=== PATIENT | female | born 1975 | race Caucasian/White ===

== ENCOUNTER 2017-09-10 19:34 | Inpatient (IN) ==
[2017-09-10] MEDS ORDERED: Haloperidol Lactate 5 MG/ML VIAL IM PRN (20:07)
[2017-09-10] MEDS ORDERED: Ibuprofen 400 MG TABLET PO PRN (20:07)
[2017-09-10] MEDS ORDERED: hydrOXYzine pamoate 25 MG CAPSULE PO PRN (20:07)
[2017-09-10] MEDS ORDERED: MOM Conc 10 ML UD.LIQ PO PRN (20:07)
[2017-09-10] MEDS: traZODone 50 MG TABLET PO PRN (23:30)
[2017-09-11] MEDS: Nicotine 21 MG PATCH.TD24 TD SCH ×2 (10:44→11:43)
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
[2017-09-11] MEDS: diazePAM 5 MG TABLET PO SCH ×2 (11:44→21:18)
[2017-09-12] MEDS: diazePAM 5 MG TABLET PO SCH ×2 (08:03→20:52)
[2017-09-12] MEDS: Nicotine 21 MG PATCH.TD24 TD SCH (08:04)
[2017-09-12] MEDS ORDERED: diazePAM 10 MG TABLET PO ONE (10:11)
--- NOTE | 2017-09-12 11:57 | Psychiatry Progress Note ---
Date of Encounter: 09/12/17 Time of Encounter: 11:45 Subjective Interval history: The patient is a 42-year-old white female. Chief complaint I want to keep writing. She did not want to go to lunch when I told her been served. History of present illness the patient is continued with 24 hours of catatonia. This includes not eating walking slowly. She tolerated zolpidem without an allergic reaction. She did not improve by report. The patient has had several doses of diazepam. She did not have flushing or other reactions. The patient ate very slowly and very poorly she had speech prompt mutism. She appeared very few words in the course of a 1 hour back and forth conversation. The patient has stated that she is to blame or that she is responsible for bad things happening. This is difficult to discern because she says very little but something has to do with hiding pills or the daughter getting in trouble or something like that. The patient is writing a little bit more productively and had minimal improvement. I spoke to the patient about her treatment option these include diazepam 10 mg up to give before lunch and will observe her to see if she eats better Another option is to use Ambien 10 mg 3 times a day to see if that helps. The patient has an underlying psychosis and is not eating. Therefore I will use olanzapine 10 mg IM on an emergency basis depending on her response. The patient can be considered for electroconvulsive therapy if she fails to improve her she has other features of dehydration or malnutrition. I will order labs for tomorrow to check on her status. The patient has hypertension this may be an autonomic disturbance from catatonia. I will also order a CPK she does not have evidence of malignant catatonia but would be a good idea along with an iron profile as she may be at risk for neuroleptic malignant syndrome as we consider antipsychotic treatment for her ongoing psychosis. The patient's history is not been fully collected by outside sources. It is likely she has bipolar disorder but we do not know her previous treatment history therefore the question of mood stabilizers antidepressants may have to wait until further information can be gathered. Review of Systems Psychiatric: Reports: anxiety, suicidal ideation, auditory hallucinations, difficulty concentrating Results - Vital Signs Vital Signs: Temp Pulse Resp BP 98.7 F 116 16 133/101 09/12/17 09:00 09/12/17 09:00 09/12/17 09:00 09/12/17 09:00 Assessment and Plan (1) Bipolar disorder, current episode depressed, severe, with psychotic features Current visit: Yes Status: Acute Plan: Continue hospitalization, Close observation, Suicide Precautions per unit protocol, Encourage participation in unit milieu, Group Therapy, Monitor sleep, Monitor appetite, Secure weapons Risks, benefits, side effects, alternatives discussed w/pt: Yes Patient agreeable to treatment: Yes (2) Catatonic disorder due to known physiological condition Current visit: Yes Status: Acute Plan: Monitor sleep, Monitor appetite, Family/Supportive other meeting Risks, benefits, side effects, alternatives discussed w/pt: Yes Patient agreeable to treatment: Yes (3) Suicidal ideations Current visit: Yes Status: Acute Plan: Continue hospitalization, Close observation, Suicide Precautions per unit protocol, Encourage participation in unit milieu, Secure weapons Risks, benefits, side effects, alternatives discussed w/pt: Yes Patient agreeable to treatment: Yes (4) Blood pressure elevated without history of HTN Current visit: Yes Status: Acute Plan: Continue hospitalization, Close observation, Suicide Precautions per unit protocol, Encourage participation in unit milieu, Group Therapy Risks, benefits, side effects, alternatives discussed w/pt: Yes Patient agreeable to treatment: Yes Psychiatry Exam - Constitutional Vitals: Temp Pulse Resp BP 98.7 F 116 16 133/101 09/12/17 09:00 09/12/17 09:00 09/12/17 09:00 09/12/17 09:00 General appearance: age & developmentally appropriate, well-groomed, well- nourished - Musculoskeletal Gait: normal Station: relaxed Strength & Tone: flaccid - Psychiatric Patient Orientation: Yes Person, Yes Time, Yes Place Level of alertness: Alert, Follows commands Behavior: guarded, suspicious, fearful, withdrawn Psychomotor activity: Catatonic Mood Description: Depressed Affect description: blunted, dysphoric, inappropriate to situation Speech Volume: Normal, Soft/Quiet, No speech Speech pattern: normal rate, limited, non-verbal Language & Vocabulary: consistent with education Thought Process: Slowed Thinking Thought Content: Yes Suicidal ideation, No Homicidal ideation, No Overt delusions, Yes Ideas of reference, Yes Paranoid delusion Perceptual Disturbances: No Auditory hallucinations, No Visual hallucinations Memory Description: Grossly Intact, Immediate Impaired, Recent Impaired, Remote Impaired Patient Reliability: Questionable Historian Intelligence Estimate: Average Judgment: Limited Insight: Minimal
[2017-09-12] MEDS: OLANZapine 5 MG TAB.RAPDIS PO SCH (20:52)
[2017-09-13] MEDS: Nicotine 21 MG PATCH.TD24 TD SCH (09:15)
[2017-09-13] MEDS: OLANZapine 5 MG TAB.RAPDIS PO SCH ×2 (09:16→20:47)
[2017-09-13] MEDS: diazePAM 5 MG TABLET PO SCH ×2 (09:16→20:48)
[2017-09-13 10:35] LABS: Thyroid Stimulating Hormone 1.648 mcIU/mL (0.340-5.600)
[2017-09-13 10:51] LABS: % Iron Saturation 10 % (15-50); Alanine Aminotransferase 52 Units/L (7-52); Albumin 4.5 g/dL (3.5-5.7); Albumin/Globulin Ratio 1.6 (1.1-2.2); Alkaline Phosphatase 106 Units/L (34-104); Aspartate Amino Transferase 32 Units/L (13-39); BUN/Creatinine Ratio 17 (6-26); Bilirubin,Total 0.8 mg/dL (0.3-1.0); Blood Urea Nitrogen 12 mg/dL (6-20); Calcium 9.8 mg/dL (8.6-10.3); Carbon Dioxide 26 mEq/L (23-29); Chloride 107 mEq/L (98-107); Chol/HDL Ratio 4.4 (0-4.9); Cholesterol 149 mg/dL (< 200); Creatine Kinase 55 Units/L (30-223); Globulin 2.9 g/dL (2.4-3.5); Glucose 102 mg/dL (70-105); HDL Cholesterol 34 mg/dL (40-59); Iron 36 mcg/dL (50-170); LDL Cholesterol,Calculated 90 mg/dL (0-99); Osmolality,Calculated 290 (280-300); Sodium 140 mEq/L (136-145); Total Protein 7.4 g/dL (6.4-8.9); Transferrin 252 mg/dL (203-362); Triglycerides 124 mg/dL (< 150); eGFR For African Americans > 60 (> 60); eGFR For Non-African Americans > 60 (> 60)
--- NOTE | 2017-09-13 15:18 | Psychiatry Progress Note ---
Date of Encounter: 09/13/17 Time of Encounter: 15:10 Subjective Interval history: Pt is a 42 yo, , female, who presents for Bipolar D/O type 1 with psychotic features, catatonic, and suicidal ideation. Pt noted she has not been taking her medication yet remains sedated on ambien. . Pt noted that she feels she is improving slowly. Pt noted she is optimistic to return home once stable. Pt denied any side effects to current medications. Pt noted she felt safe and comfortable on the unit. Pt was in agreement with treatment plan. Pt noted that she is doing pretty good today. Pt noted she slept 8 hours last night. Pt noted her appetite is okay. Pt rated her depression a 10, on a scale of zero to ten with ten being the worst and zero being none. Pt rate her anxiety a 0, on the same scale. Pt noted both visual or auditory hallucinations, pt became tearful when discussed. Pt denied any thoughts to harm herself or anyone else. AIMS=0 TD none noted Pt educated on current medications including, risks, benifits side-effects including TD including no medications, pt was inagreement. 1.Interval hx 2.Continue current medications 3.Review current labs 4.Pt had an opportunity to ask questions and discuss current treatment plan. 5.Supportive therapy was provided 6.Pt encouraged to consider group or individual therapy 7.Pt was in agreement with treatment plan. 8.Pt was educated on the risks benefits and side effects of current medications. 9. D/C Ambien due to oversedation. 10. Increase olanzapine to 10 mg PO BID for mood. Review of Systems Constitutional: Denies: fever, chills, weakness, weight change Eyes: Denies: eye pain, vision change Ears, Nose, Throat: Denies: ear pain, throat pain, dental pain, hearing loss, congestion Cardiovascular: Denies: chest pain, palpitations, dyspnea on exertion Respiratory: Denies: cough, dyspnea, wheezes Gastrointestinal: Denies: abdominal pain, nausea, vomiting, diarrhea, constipation Musculoskeletal: Denies: joint swelling, joint pain Neurological: Denies: headache, weakness, numbness, memory loss Psychiatric: Reports: anxiety, suicidal ideation, auditory hallucinations, difficulty concentrating Results - Vital Signs Vital Signs: Temp Pulse Resp BP 97.1 F L 101 18 106/72 09/13/17 09:00 09/13/17 09:00 09/13/17 09:00 09/13/17 09:00 - Labs Labs: Laboratory Results - last 24 hr 09/13/17 09:00 Sodium 140 Potassium 4.0 Chloride 107 Carbon Dioxide 26 BUN 12 Creatinine 0.70 Est GFR ( Amer) > 60 Est GFR (Non-Af Amer) > 60 BUN/Creatinine Ratio 17 Glucose 102 Calculated Osmolality 290 Calcium 9.8 Iron 36 L % Saturation 10 L Transferrin 252 Total Bilirubin 0.8 AST 32 ALT 52 Alkaline Phosphatase 106 H Creatine Kinase 55 Serum Total Protein 7.4 Albumin 4.5 Globulin 2.9 Albumin/Globulin Ratio 1.6 Triglycerides 124 Cholesterol 149 LDL Cholesterol, Calc 90 VLDL Cholesterol, Calc 25 HDL Cholesterol 34 L Cholesterol/HDL Ratio 4.4 TSH 1.648 Assessment and Plan (1) Bipolar disorder, current episode depressed, severe, with psychotic features Current visit: Yes Status: Acute Plan: Continue hospitalization, Close observation, Suicide Precautions per unit protocol, Encourage participation in unit milieu Risks, benefits, side effects , alternatives discussed w/pt: Yes Patient agreeable to treatment: Yes (2) Catatonic disorder due to known physiological condition Current visit: Yes Status: Acute Plan: Continue hospitalization, Close observation, Suicide Precautions per unit protocol, Encourage participation in unit milieu Risks, benefits, side effects , alternatives discussed w/pt: Yes Patient agreeable to treatment: Yes (3) Suicidal ideations Current visit: Yes Status: Acute Plan: Continue hospitalization, Close observation, Suicide Precautions per unit protocol, Encourage participation in unit milieu Risks, benefits, side effects , alternatives discussed w/pt: Yes Patient agreeable to treatment: Yes Consult Discharge Plan - Plan Referrals: NONE,PCP [Primary Care Provider] - Psychiatry Exam - Constitutional Vitals: Temp Pulse Resp BP 97.1 F L 101 18 106/72 09/13/17 09:00 09/13/17 09:00 09/13/17 09:00 09/13/17 09:00 General appearance: age & developmentally appropriate, well-groomed, well- nourished - Musculoskeletal Gait: normal Station: relaxed Strength & Tone: normal for patient - Psychiatric Patient Orientation: Yes Person, Yes Time, Yes Place Level of alertness: Sedated Behavior: calm, cooperative, tearful Psychomotor activity: Slowed Eye Contact: Minimal Contact Mood Description: Depressed Affect description: euthymic Speech Volume: Normal Speech pattern: normal rhythm, normal tone, slurred Language & Vocabulary: consistent with education Thought Process: Slowed Thinking Thought Content: Yes Intact Perceptual Disturbances: Yes Reacting to internal stimuli, Yes Auditory hallucinations, Yes Visual hallucinations Attention Span Ability: Unable to Focus Memory Description: Grossly Intact Patient Reliability: Questionable Historian Fund of knowledge: Yes average Intelligence Estimate: Average Judgment: Poor Insight: Minimal
[2017-09-13] MEDS ORDERED: OLANZapine 5 MG TAB.RAPDIS PO ONE (16:08)
[2017-09-14] MEDS: diazePAM 5 MG TABLET PO SCH ×2 (08:50→20:44)
[2017-09-14] MEDS: OLANZapine 5 MG TAB.RAPDIS PO SCH ×2 (08:50→20:44)
[2017-09-14] MEDS: Nicotine 21 MG PATCH.TD24 TD SCH (08:50)
--- NOTE | 2017-09-14 16:46 | Psychiatry Progress Note ---
Date of Encounter: 09/14/17 Time of Encounter: 16:30 Subjective Interval history: Pt is a 42 yo, , female, who presents for Bipolar D/O type 1 with psychotic features, catatonic, and suicidal ideation. Pt noted she has not been taking her medication yet remains sedated on ambien. . Pt noted that she feels she is improving slowly. Pt noted she is optimistic to return home once stable. Pt denied any side effects to current medications. Pt noted she felt safe and comfortable on the unit. Pt was in agreement with treatment plan. Pt noted that she is doing pretty good today. Pt noted she slept 8 hours last night. Pt noted her appetite is okay. Pt rated her depression a 8, on a scale of zero to ten with ten being the worst and zero being none. Pt rate her anxiety a 0, on the same scale. Pt noted both visual or auditory hallucinations, pt became tearful when discussed. Pt denied any thoughts to harm herself or anyone else. AIMS=0 TD none noted Pt educated on current medications including, risks, benifits side-effects including TD including no medications, pt was inagreement. 1.Interval hx 2.Continue current medications 3.Review current labs 4.Pt had an opportunity to ask questions and discuss current treatment plan. 5.Supportive therapy was provided 6.Pt encouraged to consider group or individual therapy 7.Pt was in agreement with treatment plan. 8.Pt was educated on the risks benefits and side effects of current medications. 9.Start Depakote ER 24 hr 1000 mg PO QHS for mood. 10. Draw current labs Review of Systems Constitutional: Denies: fever, chills, weakness, weight change Eyes: Denies: eye pain, vision change Ears, Nose, Throat: Denies: ear pain, throat pain, dental pain, hearing loss, congestion Cardiovascular: Denies: chest pain, palpitations, dyspnea on exertion Respiratory: Denies: cough, dyspnea, wheezes Gastrointestinal: Denies: abdominal pain, nausea, vomiting, diarrhea, constipation Musculoskeletal: Denies: joint swelling, joint pain Neurological: Denies: headache, weakness, numbness, memory loss Psychiatric: Reports: anxiety, suicidal ideation, auditory hallucinations, visual hallucinations, anhedonia, confusion, difficulty concentrating Results - Vital Signs Vital Signs: Temp Pulse Resp BP 98.3 F 93 16 114/76 09/14/17 09:00 09/14/17 09:00 09/14/17 09:00 09/14/17 09:00 Assessment and Plan (1) Bipolar disorder, current episode depressed, severe, with psychotic features Current visit: Yes Status: Acute Plan: Continue hospitalization, Close observation, Suicide Precautions per unit protocol, Encourage participation in unit milieu, Group Therapy, Monitor sleep, Monitor appetite Risks, benefits, side effects, alternatives discussed w/pt: Yes Patient agreeable to treatment: Yes (2) Catatonic disorder due to known physiological condition Current visit: Yes Status: Acute Plan: Continue hospitalization, Close observation, Suicide Precautions per unit protocol, Encourage participation in unit milieu, Group Therapy, Monitor sleep, Monitor appetite Risks, benefits, side effects, alternatives discussed w/pt: Yes Patient agreeable to treatment: Yes (3) Suicidal ideations Current visit: Yes Status: Acute Plan: Continue hospitalization, Close observation, Suicide Precautions per unit protocol, Encourage participation in unit milieu, Group Therapy, Monitor sleep, Monitor appetite Risks, benefits, side effects, alternatives discussed w/pt: Yes Patient agreeable to treatment: Yes Consult Discharge Plan - Plan Referrals: NONE,PCP [Primary Care Provider] - Psychiatry Exam - Constitutional Vitals: Temp Pulse Resp BP 98.3 F 93 16 114/76 09/14/17 09:00 09/14/17 09:00 09/14/17 09:00 09/14/17 09:00 General appearance: age & developmentally appropriate, well-groomed, well- nourished - Musculoskeletal Gait: normal Station: relaxed Strength & Tone: normal for patient - Psychiatric Patient Orientation: Yes Person, Yes Time, Yes Place Level of alertness: Sedated Behavior: calm, cooperative, withdrawn Psychomotor activity: Slowed Eye Contact: Minimal Contact Mood Description: Depressed Affect description: blunted, flat Speech Volume: Soft/Quiet Speech pattern: normal rate, fluent, spontaneous, slowed Language & Vocabulary: consistent with education Thought Process: Disorganized, Slowed Thinking Thought Content: No Suicidal ideation, No Homicidal ideation, No Overt delusions , Yes Paranoid delusion Perceptual Disturbances: Yes Auditory hallucinations Attention Span Ability: Capable of Focused Attention Memory Description: Grossly Intact Patient Reliability: Reliable Historian Fund of knowledge: Yes abstraction ability, Yes aware of current events Intelligence Estimate: Average Judgment: Limited Insight: Partial
[2017-09-14] MEDS: Divalproex (24 HR) 500 MG TABLET PO SCH (20:44)
[2017-09-15] MEDS: Nicotine 21 MG PATCH.TD24 TD SCH (08:27)
[2017-09-15] MEDS: diazePAM 5 MG TABLET PO SCH ×2 (08:27→20:17)
[2017-09-15] MEDS: OLANZapine 5 MG TAB.RAPDIS PO SCH ×2 (08:28→20:18)
--- NOTE | 2017-09-15 17:25 | Psychiatry Progress Note ---
Date of Encounter: 09/15/17 Time of Encounter: 16:30 Subjective Interval history: Pt is a 42 yo, , female, who presents for Bipolar D/O type 1 with psychotic features, catatonic, and suicidal ideation. Pt noted she has not been taking her medication. . Pt noted that she feels she is improving slowly with her current medications. Pt noted she is optimistic to return home once stable. Pt denied any side effects to current medications. Pt noted she felt safe and comfortable on the unit. Pt was in agreement with treatment plan. Pt noted that she is doing okay today. Pt noted she slept 8-10 hours last night. Pt noted her appetite is okay. Pt rated her depression a 10, on a scale of zero to ten with ten being the worst and zero being none. Pt rate her anxiety a 0, on the same scale. Pt continues to note both visual or auditory hallucinations however noted they were reduced. Pt continues to became tearful when discussing hallucinations. Pt denied any thoughts to harm anyone else. Pt noted fleeting passive suicidal ideation with no plan AIMS=0 TD none noted Pt educated on current medications including, risks, benifits side-effects including TD including no medications, pt was inagreement. 1.Interval hx 2.Continue current medications 3.Review current labs 4.Pt had an opportunity to ask questions and discuss current treatment plan. 5.Supportive therapy was provided 6.Pt encouraged to consider group or individual therapy 7.Pt was in agreement with treatment plan. 8.Pt was educated on the risks benefits and side effects of current medications. 9. current labs pending. Review of Systems Constitutional: Denies: fever, chills, weakness, weight change Eyes: Denies: eye pain, vision change Ears, Nose, Throat: Denies: ear pain, throat pain, dental pain, hearing loss, congestion Cardiovascular: Denies: chest pain, palpitations, dyspnea on exertion Respiratory: Denies: cough, dyspnea, wheezes Gastrointestinal: Denies: abdominal pain, nausea, vomiting, diarrhea, constipation Musculoskeletal: Denies: joint swelling, joint pain Neurological: Denies: headache, weakness, numbness, memory loss Psychiatric: Reports: anxiety, suicidal ideation, auditory hallucinations, visual hallucinations, anhedonia, confusion, difficulty concentrating Results - Vital Signs Vital Signs: Temp Pulse Resp BP 96.8 F L 114 16 115/90 09/15/17 09:00 09/15/17 09:00 09/15/17 09:00 09/15/17 09:00 Assessment and Plan (1) Bipolar disorder, current episode depressed, severe, with psychotic features Current visit: Yes Status: Acute Plan: Continue hospitalization, Close observation, Suicide Precautions per unit protocol, Encourage participation in unit milieu, Group Therapy, Monitor sleep, Monitor appetite Risks, benefits, side effects, alternatives discussed w/pt: Yes Patient agreeable to treatment: Yes (2) Catatonic disorder due to known physiological condition Current visit: Yes Status: Acute Plan: Continue hospitalization, Close observation, Suicide Precautions per unit protocol, Encourage participation in unit milieu, Group Therapy, Monitor sleep, Monitor appetite Risks, benefits, side effects, alternatives discussed w/pt: Yes Patient agreeable to treatment: Yes (3) Suicidal ideations Current visit: Yes Status: Acute Plan: Continue hospitalization, Close observation, Suicide Precautions per unit protocol, Encourage participation in unit milieu, Group Therapy, Monitor sleep, Monitor appetite Risks, benefits, side effects, alternatives discussed w/pt: Yes Patient agreeable to treatment: Yes Consult Discharge Plan - Plan [facility] 9:30 am (The above appointment is for your initial assessment. Your mental health counsellor and psychiatrist will be assigned to you at that time. Please bring insurance card and photo ID to your appointment. If you need to cancel/change your appointment , call at least 24 hours in advance.) Psychiatry Exam - Constitutional Vitals: Temp Pulse Resp BP 96.8 F L 114 16 115/90 09/15/17 09:00 09/15/17 09:00 09/15/17 09:00 09/15/17 09:00 General appearance: age & developmentally appropriate, well-groomed, well- nourished - Musculoskeletal Gait: normal Station: relaxed Strength & Tone: normal for patient - Psychiatric Patient Orientation: Yes Person, Yes Time, Yes Place Level of alertness: Alert Behavior: calm, cooperative, withdrawn Psychomotor activity: Slowed Eye Contact: Minimal Contact Mood Description: Depressed Affect description: blunted, flat Speech Volume: Soft/Quiet Speech pattern: normal rate, normal rhythm, normal tone, fluent, spontaneous, slowed, limited Language & Vocabulary: consistent with education Thought Process: Linear, Thought Blocking, Slowed Thinking Thought Content: Yes Suicidal ideation, No Homicidal ideation, No Overt delusions, Yes Paranoid delusion, Yes Guilt Perceptual Disturbances: Yes Auditory hallucinations, Yes Visual hallucinations Attention Span Ability: Capable of Sustained Attention Memory Description: Grossly Intact Patient Reliability: Questionable Historian Fund of knowledge: Yes abstraction ability, Yes aware of current events Intelligence Estimate: Average Judgment: Poor Insight: Partial
[2017-09-15 19:15] LABS: Basophils % 0.5 %; Eosinophils % 2.4 %; Hematocrit 44.9 % (35.3-44.9); Hemoglobin 15.3 g/dL (11.5-15.4); Immature Granulocytes % 0.2 % (0-4); Lymphocytes # 2.5 K/mcL (0.6-4.6); Lymphocytes % 27.1 %; Mean Corpuscular HGB Conc 34.1 g/dL (31.6-35.5); Mean Corpuscular Hemoglobin 30.8 pg (28.0-33.3); Mean Corpuscular Volume 90.5 fL (83.0-100.0); Monocytes # 0.5 K/mcL (0.0-1.3); Monocytes % 4.8 %; Neutrophils # 6.1 K/mcL (1.6-8.9); Platelet Count 286 K/mcL (140-400); Red Blood Count 4.96 M/mcL (3.82-4.97); Red Cell Distribution Width 12.1 % (11.5-14.5)
[2017-09-15 19:16] LABS: Basophils # 0.1 K/mcL (0.0-0.2); Eosinophils # 0.2 K/mcL (0.0-0.6)
[2017-09-15 19:38] LABS: Alanine Aminotransferase 34 Units/L (7-52); Albumin 4.3 g/dL (3.5-5.7); Albumin/Globulin Ratio 1.5 (1.1-2.2); Alkaline Phosphatase 99 Units/L (34-104); Aspartate Amino Transferase 16 Units/L (13-39); BUN/Creatinine Ratio 18 (6-26); Bilirubin,Total 0.4 mg/dL (0.3-1.0); Blood Urea Nitrogen 15 mg/dL (6-20); Calcium 9.8 mg/dL (8.6-10.3); Carbon Dioxide 27 mEq/L (23-29); Chloride 103 mEq/L (98-107); Globulin 2.8 g/dL (2.4-3.5); Glucose 113 mg/dL (70-105); Osmolality,Calculated 292 (280-300); Potassium 3.8 mEq/L (3.5-5.1); Sodium 140 mEq/L (136-145); Total Protein 7.1 g/dL (6.4-8.9); eGFR For African Americans > 60 (> 60); eGFR For Non-African Americans > 60 (> 60)
[2017-09-15] MEDS: Divalproex (24 HR) 500 MG TABLET PO SCH (20:17)
[2017-09-16] MEDS: Nicotine 21 MG PATCH.TD24 TD SCH (08:53)
[2017-09-16] MEDS: OLANZapine 5 MG TAB.RAPDIS PO SCH ×2 (08:53→20:25)
[2017-09-16] MEDS: diazePAM 5 MG TABLET PO SCH ×2 (08:53→20:24)
--- NOTE | 2017-09-16 12:38 | Psychiatry Progress Note ---
Date of Encounter: 09/16/17 Time of Encounter: 12:15 Subjective Interval history: Pt is a 42 yo, , female, who presents for schizoaffective D/O Bipolar type with hx of catatonia, and suicidal ideation. Pt noted she has not been taking her medication prior to admission. Pt noted that she feels she is improving slowly with her current medications. Pt noted she is optimistic to return home once stable. Pt denied any side effects to current medications. Pt noted she felt safe and comfortable on the unit. Pt was in agreement with treatment plan. Pt noted that she is doing okay today. Pt noted she slept 10 hours last night. Pt noted her appetite is okay. Pt rated her depression a 9, on a scale of zero to ten with ten being the worst and zero being none. Pt rate her anxiety a 0, on the same scale. Pt denied any current visual or auditory hallucinations and continues to note a reduction in both. Pt denied any thoughts to harm herself or anyone else. Pt showed significantly more emotion and expression today during the interview process. Pt continues to improve slowly. AIMS=0 TD none noted Pt educated on current medications including, risks, benifits side-effects including TD including no medications, pt was inagreement. 1.Interval hx 2.Continue current medications 3.Review current labs 4.Pt had an opportunity to ask questions and discuss current treatment plan. 5.Supportive therapy was provided 6.Pt encouraged to consider group or individual therapy 7.Pt was in agreement with treatment plan. 8.Pt was educated on the risks benefits and side effects of current medications. 9. current labs pending. Review of Systems Constitutional: Denies: fever, chills, weakness, weight change Eyes: Denies: eye pain, vision change Ears, Nose, Throat: Denies: ear pain, throat pain, dental pain, hearing loss, congestion Cardiovascular: Denies: chest pain, palpitations, dyspnea on exertion Respiratory: Denies: cough, dyspnea, wheezes Gastrointestinal: Denies: abdominal pain, nausea, vomiting, diarrhea, constipation Musculoskeletal: Denies: joint swelling, joint pain Neurological: Denies: headache, weakness, numbness, memory loss Psychiatric: Reports: anxiety, suicidal ideation, auditory hallucinations, visual hallucinations, anhedonia, confusion, difficulty concentrating Results - Vital Signs Vital Signs: Temp Pulse Resp BP 98.6 F 98 16 133/84 09/16/17 09:00 09/16/17 09:00 09/16/17 09:00 09/16/17 09:00 - Labs Labs: Laboratory Results - last 24 hr 09/15/17 09/15/17 09/15/17 19:00 19:00 19:00 WBC 9.4 RBC 4.96 Hgb 15.3 Hct 44.9 MCV 90.5 MCH 30.8 MCHC 34.1 RDW 12.1 Plt Count 286 MPV 10.0 Immature Gran % 0.2 Seg Neutrophils % 65.0 Lymphocytes % 27.1 Monocytes % 4.8 Eosinophils % 2.4 Basophils % 0.5 Neutrophils # 6.1 Lymphocytes # 2.5 Monocytes # 0.5 Eosinophils # 0.2 Basophils # 0.1 Sodium 140 Potassium 3.8 Chloride 103 Carbon Dioxide 27 BUN 15 Creatinine 0.83 Est GFR ( Amer) > 60 Est GFR (Non-Af Amer) > 60 BUN/Creatinine Ratio 18 Glucose 113 H Calculated Osmolality 292 Calcium 9.8 Total Bilirubin 0.4 AST 16 ALT 34 Alkaline Phosphatase 99 Serum Total Protein 7.1 Albumin 4.3 Globulin 2.8 Albumin/Globulin Ratio 1.5 Valproic Acid 27 L Assessment and Plan (1) Bipolar disorder, current episode depressed, severe, with psychotic features Current visit: Yes Status: Acute Plan: Continue hospitalization, Close observation, Suicide Precautions per unit protocol, Encourage participation in unit milieu, Group Therapy, Monitor sleep, Monitor appetite Risks, benefits, side effects, alternatives discussed w/pt: Yes Patient agreeable to treatment: Yes (2) Catatonic disorder due to known physiological condition Current visit: Yes Status: Acute Plan: Continue hospitalization, Close observation, Suicide Precautions per unit protocol, Encourage participation in unit milieu, Group Therapy, Monitor sleep, Monitor appetite Risks, benefits, side effects, alternatives discussed w/pt: Yes Patient agreeable to treatment: Yes (3) Suicidal ideations Current visit: Yes Status: Acute Plan: Continue hospitalization, Close observation, Suicide Precautions per unit protocol, Encourage participation in unit milieu, Group Therapy, Monitor sleep, Monitor appetite Risks, benefits, side effects, alternatives discussed w/pt: Yes Patient agreeable to treatment: Yes (4) Schizoaffective disorder, bipolar type Current visit: Yes Status: Acute Plan: Continue hospitalization, Close observation, Suicide Precautions per unit protocol, Encourage participation in unit milieu, Group Therapy, Monitor sleep, Monitor appetite Risks, benefits, side effects, alternatives discussed w/pt: Yes Patient agreeable to treatment: Yes Consult Discharge Plan - Plan [facility]errals: [facility] - 09/21/17 9:30 am (The above appointment is for your initial assessment. Your mental health counsellor and psychiatrist will be assigned to you at that time. Please bring insurance card and photo ID to your appointment. If you need to cancel/change your appointment , call at least 24 hours in advance.) Psychiatry Exam - Constitutional Vitals: Temp Pulse Resp BP 98.6 F 98 16 133/84 09/16/17 09:00 09/16/17 09:00 09/16/17 09:00 09/16/17 09:00 General appearance: age & developmentally appropriate, well-groomed, well- nourished - Musculoskeletal Gait: normal Station: relaxed Strength & Tone: normal for patient - Psychiatric Patient Orientation: Yes Person, Yes Time, Yes Place Level of alertness: Alert Behavior: calm, cooperative, tearful Psychomotor activity: Slowed Eye Contact: Maintains Eye Contact Mood Description: Depressed Affect description: congruent with mood, blunted, flat Speech Volume: Normal Speech pattern: normal rate, normal rhythm, normal tone, fluent, spontaneous Language & Vocabulary: consistent with education Thought Process: Linear, Goal Oriented Thought Content: No Suicidal ideation, No Homicidal ideation, No Overt delusions Perceptual Disturbances: Yes Auditory hallucinations, Yes Visual hallucinations Attention Span Ability: Capable of Focused Attention Memory Description: Grossly Intact Patient Reliability: Reliable Historian Fund of knowledge: Yes abstraction ability, Yes aware of current events Intelligence Estimate: Average Judgment: Limited Insight: Partial
[2017-09-16] MEDS: traZODone 50 MG TABLET PO PRN (20:24)
[2017-09-16] MEDS: Divalproex (24 HR) 500 MG TABLET PO SCH (20:24)
[2017-09-17] MEDS: Nicotine 21 MG PATCH.TD24 TD SCH (09:29)
[2017-09-17] MEDS: OLANZapine 5 MG TAB.RAPDIS PO SCH ×2 (09:29→20:26)
[2017-09-17] MEDS: diazePAM 5 MG TABLET PO SCH ×2 (09:29→20:26)
--- NOTE | 2017-09-17 10:58 | Psychiatry Progress Note ---
Date of Encounter: 09/17/17 Time of Encounter: 10:45 Subjective Interval history: Pt is a 42 yo, , female, who presents for schizoaffective D/O Bipolar type with hx of catatonia, and suicidal ideation. Pt noted she has not been taking her medication prior to admission. Pt noted that she feels she continues to feel she is improving slowly with her current medications. Pt noted she is optimistic to return home once stable. Pt continues to denied any side effects to current medications. Pt noted she felt safe and comfortable on the unit. Pt was in agreement with treatment plan. Pt noted that she is doing okay today. Pt noted she slept 10 hours last night. Pt noted her appetite is okay. Pt rated her depression a 8, on a scale of zero to ten with ten being the worst and zero being none. Pt rate her anxiety a 0, on the same scale. Pt denied any current visual or auditory hallucinations and continues to note a reduction in both. Pt denied any thoughts to harm herself or anyone else. Pt continues to show significantly more emotion and expression today during the interview process. Pt continues to improve slowly. Pt agreed to initate fluvoxemine 100 mg PO QHS for mood. Pt not was educated on current medications including, risks, benifits side-effects including TD including no medications, pt was inagreement AIMS=0 TD none noted 1.Interval hx 2.Continue current medications 3.Review current labs 4.Pt had an opportunity to ask questions and discuss current treatment plan. 5.Supportive therapy was provided 6.Pt encouraged to consider group or individual therapy 7.Pt was in agreement with treatment plan. 8.Pt was educated on the risks benefits and side effects of current medications. 9. current labs pending 10. Start fluvoxemine 100 mg PO QHS for mood. Review of Systems Constitutional: Denies: fever, chills, weakness, weight change Eyes: Denies: eye pain, vision change Ears, Nose, Throat: Denies: ear pain, throat pain, dental pain, hearing loss, congestion Cardiovascular: Denies: chest pain, palpitations, dyspnea on exertion Respiratory: Denies: cough, dyspnea, wheezes Gastrointestinal: Denies: abdominal pain, nausea, vomiting, diarrhea, constipation Musculoskeletal: Denies: joint swelling, joint pain Neurological: Denies: headache, weakness, numbness, memory loss Psychiatric: Reports: anxiety, suicidal ideation, auditory hallucinations, visual hallucinations, anhedonia, confusion, difficulty concentrating Results - Vital Signs Vital Signs: Temp Pulse Resp BP 98.5 F 98 20 123/92 09/17/17 09:00 09/17/17 09:00 09/17/17 09:00 09/17/17 09:00 Assessment and Plan (1) Bipolar disorder, current episode depressed, severe, with psychotic features Current visit: Yes Status: Acute Plan: Continue hospitalization, Close observation, Suicide Precautions per unit protocol, Encourage participation in unit milieu, Group Therapy, Monitor sleep, Monitor appetite Risks, benefits, side effects, alternatives discussed w/pt: Yes Patient agreeable to treatment: Yes (2) Catatonic disorder due to known physiological condition Current visit: Yes Status: Acute Plan: Continue hospitalization, Close observation, Suicide Precautions per unit protocol, Encourage participation in unit milieu, Group Therapy, Monitor sleep, Monitor appetite Risks, benefits, side effects, alternatives discussed w/pt: Yes Patient agreeable to treatment: Yes (3) Suicidal ideations Current visit: Yes Status: Acute Plan: Continue hospitalization, Close observation, Suicide Precautions per unit protocol, Encourage participation in unit milieu, Group Therapy, Monitor sleep, Monitor appetite Risks, benefits, side effects, alternatives discussed w/pt: Yes Patient agreeable to treatment: Yes (4) Schizoaffective disorder, bipolar type Current visit: Yes Status: Acute Plan: Continue hospitalization, Close observation, Suicide Precautions per unit protocol, Encourage participation in unit milieu, Group Therapy, Monitor sleep, Monitor appetite Risks, benefits, side effects, alternatives discussed w/pt: Yes Patient agreeable to treatment: Yes Consult Discharge Plan - Plan [facility] - [facility] 9:30 am (The above appointment is for your initial assessment. Your mental health counsellor and psychiatrist will be assigned to you at that time. Please bring insurance card and photo ID to your appointment. If you need to cancel/change your appointment , call at least 24 hours in advance.) Psychiatry Exam - Constitutional Vitals: Temp Pulse Resp BP 98.5 F 98 20 123/92 09/17/17 09:00 09/17/17 09:00 09/17/17 09:00 09/17/17 09:00 General appearance: age & developmentally appropriate, well-groomed, well- nourished - Musculoskeletal Gait: normal Station: relaxed Strength & Tone: normal for patient - Psychiatric Patient Orientation: Yes Person, Yes Time, Yes Place Level of alertness: Alert Behavior: calm, cooperative Psychomotor activity: Slowed Eye Contact: Minimal Contact Mood Description: Depressed Affect description: congruent with mood, dysphoric Speech Volume: Normal Speech pattern: normal rate, normal rhythm, normal tone, fluent, spontaneous, slowed Language & Vocabulary: consistent with education Thought Process: Linear, Goal Oriented, Thought Blocking Thought Content: Yes Suicidal ideation, No Homicidal ideation, No Overt delusions Perceptual Disturbances: Yes Auditory hallucinations, No Visual hallucinations Attention Span Ability: Capable of Focused Attention Memory Description: Grossly Intact Patient Reliability: Reliable Historian Fund of knowledge: Yes abstraction ability, Yes aware of current events Intelligence Estimate: Average Judgment: Limited Insight: Partial
[2017-09-17] MEDS: Divalproex (24 HR) 500 MG TABLET PO SCH (20:26)
[2017-09-18] MEDS: Nicotine 21 MG PATCH.TD24 TD SCH (09:15)
[2017-09-18] MEDS: OLANZapine 5 MG TAB.RAPDIS PO SCH ×2 (09:15→20:40)
[2017-09-18] MEDS: diazePAM 5 MG TABLET PO SCH (09:15)
--- NOTE | 2017-09-18 14:31 | Psychiatry Progress Note ---
Date of Encounter: 09/18/17 Time of Encounter: 14:00 Subjective Interval history: The patient was seen and she reports ongoing depression. The patient has been reading but she cannot tell me about book. The patient has complained of sedation. Previously she worked in a factory job. Patient has been treated for catatonia throat this period of time. Recently Luvox was added to the regimen. The patient has complaints of sedation. Chief complaint : I need my meds adjusted so that I am not so tired in the daytime so I can work The patient was assessed and has a little bit of an beat nystagmus a little bit of dysmetria dysdiadochokinesis. She is able to stand on 1 foot only with some assistance but the Romberg revealed only mild sway. The patient continues to have catatonic features including flaccid muscle tone mitgehen, mitmachen and I positive magnetism sign. The patient tends to hold her eyes closed. Given this presentation the patient may have bipolar disorder and the valproic acid level was 27. She weighs 170 pounds so I will increase the Depakote to 1500 mg given at night. I will change the olanzapine to 20 mg at night. I will reduce the diazepam from 5 mg twice a day to 2 mg 3 times a day. This would reduce her overall dose. Luvox may increase the blood levels of certain benzodiazepines. The patient may not tolerate benzodiazepines in her treatment she did not respond to Ambien. Therefore we can start memantine 5 mg twice a day for catatonia. The patient's psychosis is improved but she still has prominent mood features. Review of Systems Psychiatric: Reports: anxiety, suicidal ideation, auditory hallucinations, visual hallucinations, anhedonia, confusion, difficulty concentrating Results - Vital Signs Vital Signs: Temp Pulse Resp BP 97.4 F L 80 18 128/92 09/18/17 09:00 09/18/17 09:00 09/18/17 09:00 09/18/17 09:00 Assessment and Plan (1) Bipolar disorder, current episode depressed, severe, with psychotic features Current visit: Yes Status: Acute Plan: Continue hospitalization, Close observation, Suicide Precautions per unit protocol, Encourage participation in unit milieu Risks, benefits, side effects , alternatives discussed w/pt: Yes Patient agreeable to treatment: Yes (2) Catatonic disorder due to known physiological condition Current visit: Yes Status: Acute Plan: Continue hospitalization, Close observation, Suicide Precautions per unit protocol, Encourage participation in unit milieu Risks, benefits, side effects , alternatives discussed w/pt: Yes Patient agreeable to treatment: Yes (3) Suicidal ideations Current visit: Yes Status: Acute Plan: Monitor appetite, Secure weapons, Family/Supportive other meeting Risks , benefits, side effects, alternatives discussed w/pt: Yes Patient agreeable to treatment: Yes (4) Blood pressure elevated without history of HTN Current visit: Yes Status: Acute Risks, benefits, side effects, alternatives discussed w/pt: Yes Patient agreeable to treatment: Yes Consult Discharge Plan - Plan [facility] 9:30 am (The above appointment is for your initial assessment. Your mental health counsellor and psychiatrist will be assigned to you at that time. Please bring insurance card and photo ID to your appointment. If you need to cancel/change your appointment , call at least 24 hours in advance.) Psychiatry Exam - Constitutional Vitals: Temp Pulse Resp BP 97.4 F L 80 18 128/92 09/18/17 09:00 09/18/17 09:00 09/18/17 09:00 09/18/17 09:00 General appearance: age & developmentally appropriate, disheveled - Musculoskeletal Gait: slow Station: stooped Strength & Tone: rigid - Psychiatric Patient Orientation: Yes Person, Yes Time, Yes Place, Yes Circumstance Level of alertness: Sedated Behavior: calm Psychomotor activity: Catatonic Eye Contact: Minimal Contact Mood Description: Depressed Affect description: dysphoric Speech Volume: Soft/Quiet Speech pattern: monotone Language & Vocabulary: consistent with education Thought Content: Yes Suicidal ideation Attention Span Ability: Capable of Sustained Attention Memory Description: Grossly Intact Patient Reliability: Questionable Historian Fund of knowledge: Yes average Intelligence Estimate: Average Judgment: Limited Insight: Minimal
[2017-09-18] MEDS: diazePAM 2 MG TABLET PO SCH ×2 (14:53→20:38)
[2017-09-18] MEDS: Divalproex (24 HR) 500 MG TABLET PO SCH (20:39)
[2017-09-19] MEDS: Nicotine 21 MG PATCH.TD24 TD SCH (09:19)
[2017-09-19] MEDS: diazePAM 2 MG TABLET PO SCH ×3 (09:19→21:29)
--- NOTE | 2017-09-19 12:13 | Psychiatry Progress Note ---
Date of Encounter: 09/19/17 Time of Encounter: 10:30 Subjective Interval history: Pt is a 42 yo, , female, who presents for schizoaffective D/O Bipolar type with hx of catatonia, and suicidal ideation. Pt noted she has not been taking her medication prior to admission. Pt noted that she feels she continues to feel she is improving slowly with her current medications. Pt continues to note that she is optimistic to return home once stable. Pt continues to denied any side effects to current medications. Pt noted she felt safe and comfortable on the unit. Pt was in agreement with treatment plan. Pt noted that she is doing okay today. Pt noted she slept 8-10 hours last night. Pt noted her appetite is okay. Pt rated her depression a 8, on a scale of zero to ten with ten being the worst and zero being none. Pt rate her anxiety a 0, on the same scale. Pt denied any current visual or auditory hallucinations and continues to note a reduction in both. Pt denied any thoughts to harm herself or anyone else. Pt continues to improve slowly. AIMS=0 TD none noted 1.Interval hx 2.Continue current medications 3.Review current labs 4.Pt had an opportunity to ask questions and discuss current treatment plan. 5.Supportive therapy was provided 6.Pt encouraged to consider group or individual therapy 7.Pt was in agreement with treatment plan. 8.Pt was educated on the risks benefits and side effects of current medications. Review of Systems Constitutional: Denies: fever, chills, weakness, weight change Eyes: Denies: eye pain, vision change Ears, Nose, Throat: Denies: ear pain, throat pain, dental pain, hearing loss, congestion Cardiovascular: Denies: chest pain, palpitations, dyspnea on exertion Respiratory: Denies: cough, dyspnea, wheezes Gastrointestinal: Denies: abdominal pain, nausea, vomiting, diarrhea, constipation Musculoskeletal: Denies: joint swelling, joint pain Neurological: Denies: headache, weakness, numbness, memory loss Psychiatric: Reports: anxiety, suicidal ideation, auditory hallucinations, visual hallucinations, anhedonia, confusion, difficulty concentrating Results - Vital Signs Vital Signs: Temp Pulse Resp BP 99.2 F 51 20 143/77 09/19/17 09:00 09/19/17 09:00 09/19/17 09:00 09/19/17 09:00 Assessment and Plan (1) Bipolar disorder, current episode depressed, severe, with psychotic features Current visit: Yes Status: Acute Plan: Continue hospitalization, Close observation, Suicide Precautions per unit protocol, Encourage participation in unit milieu, Group Therapy, Monitor sleep, Monitor appetite Risks, benefits, side effects, alternatives discussed w/pt: Yes Patient agreeable to treatment: Yes (2) Catatonic disorder due to known physiological condition Current visit: Yes Status: Acute Plan: Continue hospitalization, Close observation, Suicide Precautions per unit protocol, Encourage participation in unit milieu, Group Therapy, Monitor sleep, Monitor appetite Risks, benefits, side effects, alternatives discussed w/pt: Yes Patient agreeable to treatment: Yes (3) Suicidal ideations Current visit: Yes Status: Acute Plan: Continue hospitalization, Close observation, Suicide Precautions per unit protocol, Encourage participation in unit milieu, Group Therapy, Monitor sleep, Monitor appetite Risks, benefits, side effects, alternatives discussed w/pt: Yes Patient agreeable to treatment: Yes (4) Schizoaffective disorder, bipolar type Current visit: Yes Status: Acute Plan: Continue hospitalization, Close observation, Suicide Precautions per unit protocol, Encourage participation in unit milieu, Group Therapy, Monitor sleep, Monitor appetite Risks, benefits, side effects, alternatives discussed w/pt: Yes Patient agreeable to treatment: Yes Consult Discharge Plan - Plan [facility] 9:30 am (The above appointment is for your initial assessment. Your mental health counsellor and psychiatrist will be assigned to you at that time. Please bring insurance card and photo ID to your appointment. If you need to cancel/change your appointment , call at least 24 hours in advance.) Psychiatry Exam - Constitutional Vitals: Temp Pulse Resp BP 99.2 F 51 20 143/77 09/19/17 09:00 09/19/17 09:00 09/19/17 09:00 09/19/17 09:00 General appearance: age & developmentally appropriate, well-groomed, well- nourished - Musculoskeletal Gait: normal Station: relaxed Strength & Tone: normal for patient - Psychiatric Patient Orientation: Yes Person, Yes Time, Yes Place Level of alertness: Sedated Behavior: calm, cooperative, withdrawn Psychomotor activity: Slowed Eye Contact: Maintains Eye Contact Mood Description: Depressed Affect description: congruent with mood, dysphoric Speech Volume: Soft/Quiet Speech pattern: normal rate, normal rhythm, normal tone, fluent, spontaneous Language & Vocabulary: consistent with education Thought Process: Linear, Goal Oriented, Tangential Thought Content: No Suicidal ideation, No Homicidal ideation, No Overt delusions , Yes Paranoid delusion Perceptual Disturbances: No Auditory hallucinations, No Visual hallucinations Attention Span Ability: Capable of Focused Attention Memory Description: Grossly Intact Patient Reliability: Reliable Historian Fund of knowledge: Yes abstraction ability, Yes aware of current events Intelligence Estimate: Average Judgment: Limited Insight: Partial
[2017-09-19] MEDS: Divalproex (24 HR) 500 MG TABLET PO SCH (21:29)
[2017-09-19] MEDS: OLANZapine 5 MG TAB.RAPDIS PO SCH (21:29)
[2017-09-20] MEDS: diazePAM 2 MG TABLET PO SCH ×3 (08:16→21:26)
[2017-09-20] MEDS: Nicotine 21 MG PATCH.TD24 TD SCH (08:16)
[2017-09-20] MEDS ORDERED: ALPRAZolam 0.5 MG TABLET PO PRN (12:37)
--- NOTE | 2017-09-20 12:41 | Psychiatry Progress Note ---
Date of Encounter: 09/20/17 Time of Encounter: 12:00 Subjective Interval history: Pt is a 42 yo, , female, who presents for schizoaffective D/O Bipolar type with hx of catatonia, and suicidal ideation. Pt noted she has not been taking her medication prior to admission. Pt noted that she feels she continues to feel she is improving slowly with her current medications. Pt noted she feels that she becomes anxious when she has thoughts that cant get out of her head. Pt continues to note that she is optimistic to return home once stable. Pt continues to denied any side effects to current medications. Pt noted she felt safe and comfortable on the unit. Pt was in agreement with treatment plan. Pt noted that she is doing okay today. Pt noted she slept 8-10 hours last night. Pt noted her appetite is okay. Pt rated her depression a 5, on a scale of zero to ten with ten being the worst and zero being none. Pt rate her anxiety a 1, on the same scale. Pt denied any current visual or auditory hallucinations and continues to note a reduction in both. Pt denied any thoughts to harm herself or anyone else. Pt continues to improve slowly. AIMS=0 TD none noted 1.Interval hx 2.Continue current medications 3.Review current labs 4.Pt had an opportunity to ask questions and discuss current treatment plan. 5.Supportive therapy was provided 6.Pt encouraged to consider group or individual therapy 7.Pt was in agreement with treatment plan. 8.Pt was educated on the risks benefits and side effects of current medications. 9. start alprazolam 0.5 mg PO BID for catatonia Review of Systems Constitutional: Denies: fever, chills, weakness, weight change Eyes: Denies: eye pain, vision change Ears, Nose, Throat: Denies: ear pain, throat pain, dental pain, hearing loss, congestion Cardiovascular: Denies: chest pain, palpitations, dyspnea on exertion Respiratory: Denies: cough, dyspnea, wheezes Gastrointestinal: Denies: abdominal pain, nausea, vomiting, diarrhea, constipation Musculoskeletal: Denies: joint swelling, joint pain Neurological: Denies: headache, weakness, numbness, memory loss Psychiatric: Reports: anxiety, suicidal ideation, auditory hallucinations, visual hallucinations, anhedonia, confusion, difficulty concentrating Results - Vital Signs Vital Signs: Temp Pulse Resp BP 98 F 78 16 138/96 09/20/17 09:00 09/20/17 09:00 09/20/17 09:00 09/20/17 09:00 Assessment and Plan (1) Bipolar disorder, current episode depressed, severe, with psychotic features Current visit: Yes Status: Acute Plan: Continue hospitalization, Close observation, Suicide Precautions per unit protocol, Encourage participation in unit milieu, Group Therapy, Monitor sleep, Monitor appetite Risks, benefits, side effects, alternatives discussed w/pt: Yes Patient agreeable to treatment: Yes (2) Catatonic disorder due to known physiological condition Current visit: Yes Status: Acute Plan: Continue hospitalization, Close observation, Suicide Precautions per unit protocol, Encourage participation in unit milieu, Group Therapy, Monitor sleep, Monitor appetite Risks, benefits, side effects, alternatives discussed w/pt: Yes Patient agreeable to treatment: Yes (3) Suicidal ideations Current visit: Yes Status: Acute Plan: Continue hospitalization, Close observation, Suicide Precautions per unit protocol, Encourage participation in unit milieu, Group Therapy, Monitor sleep, Monitor appetite Risks, benefits, side effects, alternatives discussed w/pt: Yes Patient agreeable to treatment: Yes (4) Schizoaffective disorder, bipolar type Current visit: Yes Status: Acute Plan: Continue hospitalization, Close observation, Suicide Precautions per unit protocol, Encourage participation in unit milieu, Group Therapy, Monitor sleep, Monitor appetite Risks, benefits, side effects, alternatives discussed w/pt: Yes Patient agreeable to treatment: Yes Consult Discharge Plan - Plan [facility] 9:30 am (The above appointment is for your initial assessment. Your mental health counsellor and psychiatrist will be assigned to you at that time. Please bring insurance card and photo ID to your appointment. If you need to cancel/change your appointment , call at least 24 hours in advance.) Psychiatry Exam - Constitutional Vitals: Temp Pulse Resp BP 98 F 78 16 138/96 09/20/17 09:00 09/20/17 09:00 09/20/17 09:00 09/20/17 09:00 General appearance: age & developmentally appropriate, well-groomed, well- nourished - Musculoskeletal Gait: normal Station: relaxed Strength & Tone: normal for patient - Psychiatric Patient Orientation: Yes Person, Yes Time, Yes Place, Yes Circumstance Level of alertness: Sedated Behavior: cooperative, withdrawn Psychomotor activity: Slowed Eye Contact: Maintains Eye Contact Mood Description: Depressed Affect description: congruent with mood, dysphoric Speech Volume: Normal Speech pattern: normal rate, normal rhythm, normal tone, fluent, spontaneous Language & Vocabulary: consistent with education Thought Process: Intact, Logical, Linear, Goal Oriented Thought Content: Yes Intact Perceptual Disturbances: No Auditory hallucinations, No Visual hallucinations Attention Span Ability: Capable of Focused Attention Memory Description: Grossly Intact Patient Reliability: Reliable Historian Fund of knowledge: Yes abstraction ability, Yes aware of current events Intelligence Estimate: Average Judgment: Limited Insight: Partial
[2017-09-20] MEDS: Divalproex (24 HR) 500 MG TABLET PO SCH (21:25)
[2017-09-20] MEDS: OLANZapine 5 MG TAB.RAPDIS PO SCH (21:27)
[2017-09-21] MEDS: Nicotine 21 MG PATCH.TD24 TD SCH (09:30)
[2017-09-21] MEDS: diazePAM 2 MG TABLET PO SCH ×2 (09:31→21:07)
--- NOTE | 2017-09-21 13:04 | Psychiatry Progress Note ---
Date of Encounter: 09/21/17 Time of Encounter: 13:00 Subjective Interval history: Pt is a 42 yo, , female, who presents for schizoaffective D/O Bipolar type with hx of catatonia, and suicidal ideation. Pt noted she has not been taking her medication prior to admission. Pt noted that she feels she continues to feel she is improving slowly with her current medications. Pt noted she feels that she becomes anxious when she has "bad thoughts....but its getting better." Pt continues to note that she is optimistic to return home with her children. Pt continues to denied any side effects to current medications. Pt noted she felt safe and comfortable on the unit. Pt was in agreement with treatment plan. Pt noted that she is doing better today. Pt noted she slept 8-10 hours last night. Pt noted her appetite is okay. Pt rated her depression a 5, on a scale of zero to ten with ten being the worst and zero being none. Pt rate her anxiety a 1, on the same scale. Pt denied any current visual or auditory hallucinations and continues to note a reduction in both. Pt denied any thoughts to harm herself or anyone else. Pt continues to improve slowly. AIMS=0 TD none noted 1.Interval hx 2.Continue current medications 3.Review current labs 4.Pt had an opportunity to ask questions and discuss current treatment plan. 5.Supportive therapy was provided 6.Pt encouraged to consider group or individual therapy 7.Pt was in agreement with treatment plan. 8.Pt was educated on the risks benefits and side effects of current medications. Review of Systems Constitutional: Denies: fever, chills, weakness, weight change Eyes: Denies: eye pain, vision change Ears, Nose, Throat: Denies: ear pain, throat pain, dental pain, hearing loss, congestion Cardiovascular: Denies: chest pain, palpitations, dyspnea on exertion Respiratory: Denies: cough, dyspnea, wheezes Gastrointestinal: Denies: abdominal pain, nausea, vomiting, diarrhea, constipation Musculoskeletal: Denies: joint swelling, joint pain Neurological: Denies: headache, weakness, numbness, memory loss Psychiatric: Reports: anxiety, suicidal ideation, auditory hallucinations, visual hallucinations, anhedonia, confusion, difficulty concentrating Results - Vital Signs Vital Signs: Temp Pulse Resp BP 98 F 63 16 116/72 09/21/17 08:54 09/21/17 08:54 09/21/17 08:54 09/21/17 08:54 Assessment and Plan (1) Bipolar disorder, current episode depressed, severe, with psychotic features Current visit: Yes Status: Acute Plan: Continue hospitalization, Close observation, Suicide Precautions per unit protocol, Encourage participation in unit milieu, Group Therapy, Monitor sleep, Monitor appetite Risks, benefits, side effects, alternatives discussed w/pt: Yes Patient agreeable to treatment: Yes (2) Catatonic disorder due to known physiological condition Current visit: Yes Status: Acute Plan: Continue hospitalization, Close observation, Suicide Precautions per unit protocol, Encourage participation in unit milieu, Group Therapy, Monitor sleep, Monitor appetite Risks, benefits, side effects, alternatives discussed w/pt: Yes Patient agreeable to treatment: Yes (3) Suicidal ideations Current visit: Yes Status: Acute Plan: Continue hospitalization, Close observation, Suicide Precautions per unit protocol, Encourage participation in unit milieu, Group Therapy, Monitor sleep, Monitor appetite Risks, benefits, side effects, alternatives discussed w/pt: Yes Patient agreeable to treatment: Yes (4) Schizoaffective disorder, bipolar type Current visit: Yes Status: Acute Plan: Continue hospitalization, Close observation, Suicide Precautions per unit protocol, Encourage participation in unit milieu, Group Therapy, Monitor sleep, Monitor appetite Risks, benefits, side effects, alternatives discussed w/pt: Yes Patient agreeable to treatment: Yes Consult Discharge Plan - Plan [facility] 1:00 pm (The above appointment is for your initial assessment. Your mental health counsellor and psychiatrist will be assigned to you at that time. Please bring insurance card and photo ID to your appointment. If you need to cancel/change your appointment , call at least 24 hours in advance.) Psychiatry Exam - Constitutional Vitals: Temp Pulse Resp BP 98 F 63 16 116/72 09/21/17 08:54 09/21/17 08:54 09/21/17 08:54 09/21/17 08:54 General appearance: age & developmentally appropriate, well-groomed, well- nourished - Musculoskeletal Gait: normal Station: relaxed Strength & Tone: normal for patient - Psychiatric Patient Orientation: Yes Person, Yes Time, Yes Place Level of alertness: Alert Behavior: calm, cooperative, withdrawn Psychomotor activity: Slowed Eye Contact: Maintains Eye Contact Mood Description: Depressed Affect description: congruent with mood, dysphoric Speech Volume: Normal, Soft/Quiet Speech pattern: normal rate, normal tone, fluent, spontaneous, slowed Language & Vocabulary: consistent with education Thought Process: Linear, Goal Oriented, Thought Blocking Thought Content: No Suicidal ideation, No Homicidal ideation, No Overt delusions Perceptual Disturbances: No Auditory hallucinations, No Visual hallucinations Attention Span Ability: Capable of Sustained Attention Memory Description: Grossly Intact Patient Reliability: Questionable Historian Fund of knowledge: Yes abstraction ability, Yes aware of current events Intelligence Estimate: Average Judgment: Limited Insight: Partial
[2017-09-21] MEDS: Divalproex (24 HR) 500 MG TABLET PO SCH (21:06)
[2017-09-21] MEDS: traZODone 50 MG TABLET PO PRN (21:07)
[2017-09-21] MEDS: OLANZapine 5 MG TAB.RAPDIS PO SCH (21:07)
--- NOTE | 2017-09-22 07:22 | Psychiatry Progress Note ---
Date of Encounter: 09/22/17 Time of Encounter: 06:45 Subjective Interval history: Pt is a 42 yo, , female, who presents for schizoaffective D/O Bipolar type with hx of catatonia, and suicidal ideation. Pt noted she has not been taking her medication prior to admission. Pt noted that she is feeling better today. Pt continues to note reduction in depression and mood. Pt noted she feels she would like to consider discharge planning. Pt noted she continues to feels that she becomes anxious when she has "bad thoughts....but its getting better." Pt continues to note that she is optimistic to return home with her children. Pt continues to denied any side effects to current medications. Pt noted she felt safe and comfortable on the unit. Pt was in agreement with treatment plan. Pt noted that she is doing better today. Pt noted she slept 8 hours last night. Pt noted her appetite is okay. Pt rated her depression a 4, on a scale of zero to ten with ten being the worst and zero being none. Pt rate her anxiety a 1, on the same scale. Pt denied any current visual or auditory hallucinations and continues to note a reduction in both. Pt denied any thoughts to harm herself or anyone else. Pt continues to improve slowly. AIMS=0 TD none noted 1.Interval hx 2.Continue current medications 3.Review current labs 4.Pt had an opportunity to ask questions and discuss current treatment plan. 5.Supportive therapy was provided 6.Pt encouraged to consider group or individual therapy 7.Pt was in agreement with treatment plan. 8.Pt was educated on the risks benefits and side effects of current medications. 9. Consider coordination of discharge planning with outpt mental health follow up. Review of Systems Constitutional: Denies: fever, chills, weakness, weight change Eyes: Denies: eye pain, vision change Ears, Nose, Throat: Denies: ear pain, throat pain, dental pain, hearing loss, congestion Cardiovascular: Denies: chest pain, palpitations, dyspnea on exertion Respiratory: Denies: cough, dyspnea, wheezes Gastrointestinal: Denies: abdominal pain, nausea, vomiting, diarrhea, constipation Musculoskeletal: Denies: joint swelling, joint pain Neurological: Denies: headache, weakness, numbness, memory loss Psychiatric: Reports: anxiety, suicidal ideation, auditory hallucinations, visual hallucinations, anhedonia, confusion, difficulty concentrating Results - Vital Signs Vital Signs: Temp Pulse Resp BP 98.7 F 101 16 158/103 09/21/17 19:49 09/21/17 19:49 09/21/17 19:49 09/21/17 19:49 Assessment and Plan (1) Bipolar disorder, current episode depressed, severe, with psychotic features Current visit: Yes Status: Acute Plan: Continue hospitalization, Close observation, Suicide Precautions per unit protocol, Encourage participation in unit milieu, Group Therapy, Monitor sleep, Monitor appetite Risks, benefits, side effects, alternatives discussed w/pt: Yes Patient agreeable to treatment: Yes (2) Catatonic disorder due to known physiological condition Current visit: Yes Status: Acute Plan: Continue hospitalization, Close observation, Suicide Precautions per unit protocol, Encourage participation in unit milieu, Group Therapy, Monitor sleep, Monitor appetite Risks, benefits, side effects, alternatives discussed w/pt: Yes Patient agreeable to treatment: Yes (3) Suicidal ideations Current visit: Yes Status: Acute Plan: Continue hospitalization, Close observation, Suicide Precautions per unit protocol, Encourage participation in unit milieu, Group Therapy, Monitor sleep, Monitor appetite Risks, benefits, side effects, alternatives discussed w/pt: Yes Patient agreeable to treatment: Yes (4) Schizoaffective disorder, bipolar type Current visit: Yes Status: Acute Plan: Continue hospitalization, Close observation, Suicide Precautions per unit protocol, Encourage participation in unit milieu, Group Therapy, Monitor sleep, Monitor appetite Risks, benefits, side effects, alternatives discussed w/pt: Yes Patient agreeable to treatment: Yes Consult Discharge Plan - Plan [facility] - [facility] 1:00 pm (The above appointment is for your initial assessment. Your mental health counsellor and psychiatrist will be assigned to you at that time. Please bring insurance card and photo ID to your appointment. If you need to cancel/change your appointment , call at least 24 hours in advance.) Psychiatry Exam - Constitutional Vitals: Temp Pulse Resp BP 98.7 F 101 16 158/103 09/21/17 19:49 09/21/17 19:49 09/21/17 19:49 09/21/17 19:49 General appearance: age & developmentally appropriate, well-groomed, well- nourished - Musculoskeletal Gait: normal Station: relaxed Strength & Tone: normal for patient - Psychiatric Patient Orientation: Yes Person, Yes Time, Yes Place Level of alertness: Alert Behavior: calm, cooperative, withdrawn Psychomotor activity: Slowed Eye Contact: Maintains Eye Contact Mood Description: Euthymic/stable, Depressed Affect description: congruent with mood, full range, dysphoric Speech Volume: Normal Speech pattern: normal rate, normal rhythm, normal tone, fluent, spontaneous Language & Vocabulary: consistent with education Thought Process: Linear, Goal Oriented Thought Content: No Suicidal ideation, No Homicidal ideation, No Overt delusions Perceptual Disturbances: No Auditory hallucinations, No Visual hallucinations Attention Span Ability: Capable of Focused Attention Memory Description: Grossly Intact Patient Reliability: Reliable Historian Fund of knowledge: Yes abstraction ability, Yes aware of current events Intelligence Estimate: Average Judgment: Limited Insight: Partial
[2017-09-22] MEDS: Nicotine 21 MG PATCH.TD24 TD SCH (09:55)
[2017-09-22] MEDS: diazePAM 2 MG TABLET PO SCH ×2 (09:55→21:06)
[2017-09-22] MEDS: Divalproex (24 HR) 500 MG TABLET PO SCH (21:05)
[2017-09-22] MEDS: OLANZapine 5 MG TAB.RAPDIS PO SCH (21:06)
[2017-09-22] MEDS: Mag Hydrox/Al Hydrox/Simeth 30 ML UDC PO PRN (22:33)
[2017-09-23] MEDS: diazePAM 2 MG TABLET PO SCH ×2 (08:18→20:47)
[2017-09-23] MEDS: Nicotine 21 MG PATCH.TD24 TD SCH (08:18)
--- NOTE | 2017-09-23 15:15 | Psychiatry Progress Note ---
Date of Encounter: 09/23/17 Time of Encounter: 14:15 Subjective Interval history: Pt is a 42 yo, , female, who presents for schizoaffective D/O Bipolar type with hx of catatonia, and suicidal ideation. Pt noted she has not been taking her medication prior to admission. Pt noted that she feels much better today. Pt continues to note reduction in depression and mood. Pt noted she feels comfortable for discharge home. Pt noted she feels her "bad thoughts have reduced." Pt continues to note that she is optimistic to return home with her children. Pt continues to denied any side effects to current medications. Pt noted she felt safe and comfortable on the unit. Pt was in agreement with treatment plan. Pt noted that she is doing better today. Pt noted she slept 8 hours last night. Pt noted her appetite is okay. Pt rated her depression a 3, on a scale of zero to ten with ten being the worst and zero being none. Pt rate her anxiety a 1, on the same scale. Pt denied any current visual or auditory hallucinations and continues to note a reduction in both. Pt denied any thoughts to harm herself or anyone else. Pt continues to improve slowly. AIMS=0 TD none noted 1.Interval hx 2.Continue current medications 3.Review current labs 4.Pt had an opportunity to ask questions and discuss current treatment plan. 5.Supportive therapy was provided 6.Pt encouraged to consider group or individual therapy 7.Pt was in agreement with treatment plan. 8.Pt was educated on the risks benefits and side effects of current medications. 9. Consider coordination of discharge planning with outpt mental health follow up. Review of Systems Constitutional: Denies: fever, chills, weakness, weight change Eyes: Denies: eye pain, vision change Ears, Nose, Throat: Denies: ear pain, throat pain, dental pain, hearing loss, congestion Cardiovascular: Denies: chest pain, palpitations, dyspnea on exertion Respiratory: Denies: cough, dyspnea, wheezes Gastrointestinal: Denies: abdominal pain, nausea, vomiting, diarrhea, constipation Musculoskeletal: Denies: joint swelling, joint pain Neurological: Denies: headache, weakness, numbness, memory loss Psychiatric: Reports: anxiety, suicidal ideation, auditory hallucinations, visual hallucinations, anhedonia, confusion, difficulty concentrating Results - Vital Signs Vital Signs: Temp Pulse Resp BP Pulse Ox 97.9 F 119 18 128/97 98 06/21/18 09:00 09/23/17 09:00 09/23/17 09:00 09/23/17 09:00 09/22/17 19:56 Assessment and Plan (1) Bipolar disorder, current episode depressed, severe, with psychotic features Current visit: Yes Status: Acute Plan: Continue hospitalization, Close observation, Suicide Precautions per unit protocol, Encourage participation in unit milieu, Group Therapy, Monitor sleep, Monitor appetite Risks, benefits, side effects, alternatives discussed w/pt: Yes Patient agreeable to treatment: Yes (2) Catatonic disorder due to known physiological condition Current visit: Yes Status: Acute Plan: Continue hospitalization, Close observation, Suicide Precautions per unit protocol, Encourage participation in unit milieu, Group Therapy, Monitor sleep, Monitor appetite Risks, benefits, side effects, alternatives discussed w/pt: Yes Patient agreeable to treatment: Yes (3) Suicidal ideations Current visit: Yes Status: Acute Plan: Continue hospitalization, Close observation, Suicide Precautions per unit protocol, Encourage participation in unit milieu, Group Therapy, Monitor sleep, Monitor appetite Risks, benefits, side effects, alternatives discussed w/pt: Yes Patient agreeable to treatment: Yes (4) Schizoaffective disorder, bipolar type Current visit: Yes Status: Acute Plan: Continue hospitalization, Close observation, Suicide Precautions per unit protocol, Encourage participation in unit milieu, Group Therapy, Monitor sleep, Monitor appetite Risks, benefits, side effects, alternatives discussed w/pt: Yes Patient agreeable to treatment: Yes Consult Discharge Plan - Plan [facility] 1:00 pm (The above appointment is for your initial assessment. Your mental health counsellor and psychiatrist will be assigned to you at that time. Please bring insurance card and photo ID to your appointment. If you need to cancel/change your appointment , call at least 24 hours in advance.) Psychiatry Exam - Constitutional Vitals: Temp Pulse Resp BP Pulse Ox 97.9 F 119 18 128/97 98 09/23/17 09:00 09/23/17 09:00 09/23/17 09:00 09/23/17 09:00 09/22/17 19:56 General appearance: age & developmentally appropriate, well-groomed, well- nourished - Musculoskeletal Gait: normal Station: relaxed Strength & Tone: normal for patient - Psychiatric Patient Orientation: Yes Person, Yes Time, Yes Place Level of alertness: Alert Behavior: calm, cooperative Psychomotor activity: Normal Eye Contact: Maintains Eye Contact Mood Description: Euthymic/stable Affect description: congruent with mood, full range Speech Volume: Normal Speech pattern: normal rate, normal rhythm, normal tone, fluent, spontaneous Language & Vocabulary: consistent with education Thought Process: Linear, Goal Oriented Thought Content: No Suicidal ideation, No Homicidal ideation, No Overt delusions Perceptual Disturbances: No Auditory hallucinations, No Visual hallucinations Attention Span Ability: Capable of Focused Attention Memory Description: Grossly Intact Patient Reliability: Reliable Historian Fund of knowledge: Yes abstraction ability, Yes aware of current events Intelligence Estimate: Average Judgment: Limited Insight: Partial
[2017-09-23] MEDS: Mag Hydrox/Al Hydrox/Simeth 30 ML UDC PO PRN (18:16)
[2017-09-23] MEDS: OLANZapine 5 MG TAB.RAPDIS PO SCH (20:45)
[2017-09-23] MEDS: Divalproex (24 HR) 500 MG TABLET PO SCH (20:46)
[2017-09-24] MEDS: Mag Hydrox/Al Hydrox/Simeth 30 ML UDC PO PRN ×2 (00:11→10:56)
--- NOTE | 2017-09-24 08:01 | Discharge Summary ---
Date of Encounter: 09/24/17 Time of Encounter: 07:30 Diagnosis - Discharge Diagnosis (1) Bipolar disorder, current episode depressed, severe, with psychotic features Status: Acute (2) Catatonic disorder due to known physiological condition Status: Acute (3) Suicidal ideations Status: Acute (4) Schizoaffective disorder, bipolar type Status: Acute Medications - Discharge Medications Prescriptions: diazePAM [Valium] 2 mg PO BID 30 Days #60 tablet Divalproex (24 HR) [Depakote ER (24 HR)] 1,500 mg PO HS 30 Days #90 tab.er.24h fluvoxaMINE [Luvox] 100 mg PO HS 30 Days #30 tablet Memantine [Namenda] 5 mg PO BID 30 Days #60 tablet OLANZapine [Zyprexa Zydis] 20 mg PO HS 30 Days #120 tab.rapdis traZODone [TraZODone] 50 mg PO HS PRN 30 Days #30 tablet PRN Reason: Insomnia Divalproex (24 HR) [Depakote ER (24 HR)] 1,500 mg PO HS 30 Days #90 tab.er.24h 09/24/17 [Rx] Memantine [Namenda] 5 mg PO BID 30 Days #60 tablet 09/24/17 [Rx] OLANZapine [Zyprexa Zydis] 20 mg PO HS 30 Days #120 tab.rapdis 09/24/17 [Rx] diazePAM [Valium] 2 mg PO BID 30 Days #60 tablet 09/24/17 [Rx] fluvoxaMINE [Luvox] 100 mg PO HS 30 Days #30 tablet 09/24/17 [Rx] traZODone [TraZODone] 50 mg PO HS PRN 30 Days #30 tablet 09/24/17 [Rx] 3 Allergy/AdvReac Type Severity Reaction Status Date / Time lorazepam [From Ativan] Allergy Flushing Verified 09/10/17 20:06 Results Procedures and tests throughout hospitalization: Completed Lab Orders Category Date Time Status CBC [Complete Blood Count] [HEME] Routine Lab 09/15/17 19:00 Completed Comprehensive Metabolic Panel Routine Lab 09/13/17 09:00 Completed Comprehensive Metabolic Panel Routine Lab 09/15/17 19:00 Completed Creatine Kinase Routine Lab 09/13/17 09:00 Completed Iron Profile Routine Lab 09/13/17 09:00 Completed Lipid Panel Routine Lab 09/13/17 09:00 Completed TSH [Thyroid Stimulating Hormone] Routine Lab 09/13/17 09:00 Completed Valproate Routine Lab 09/15/17 19:00 Completed Provider Date of admission: 09/10/17 19:34 Primary care physician: PCP NONE Consults: 09/10/17 23:01 Consult to Pastoral Services [CONS] Routine Comment: Discharging clinician: Dustin [place] Psychiatry Exam - Constitutional Vitals: Temp Pulse Resp BP Pulse Ox 99.2 F 80 16 118/78 98 09/23/17 21:00 09/23/17 21:00 09/23/17 21:00 09/23/17 21:00 09/22/17 19:56 General appearance: age & developmentally appropriate, well-groomed, well- nourished - Musculoskeletal Gait: normal Station: relaxed Strength & Tone: normal for patient - Psychiatric Patient Orientation: Yes Person, Yes Time, Yes Place Level of alertness: Alert Behavior: calm, cooperative Psychomotor activity: Normal Eye Contact: Maintains Eye Contact Mood Description: Euthymic/stable Affect description: congruent with mood, full range Speech Volume: Normal Speech pattern: normal rate, normal rhythm, normal tone, fluent, spontaneous Language & Vocabulary: consistent with education Thought Process: Linear, Goal Oriented Thought Content: No Suicidal ideation, No Homicidal ideation, No Overt delusions Perceptual Disturbances: No Auditory hallucinations, No Visual hallucinations Attention Span Ability: Capable of Focused Attention Memory Description: Grossly Intact Patient Reliability: Reliable Historian Fund of knowledge: Yes abstraction ability, Yes aware of current events Intelligence Estimate: Average Judgment: Limited Insight: Partial Hospital Course Hospital course: Pt is a 42 yo, , female, who presents for schizoaffective D/O Bipolar type with hx of catatonia, and suicidal ideation. Pt noted she has not been taking her medication prior to admission. Pt noted that she feels much better today. Pt continues to note reduction in depression and mood. Pt noted she feels comfortable for discharge home. Pt noted she feels her "bad thoughts have reduced." Pt continues to note that she is optimistic to return home with her children. Pt continues to denied any side effects to current medications. Pt noted she felt safe and comfortable on the unit. Pt was in agreement with treatment plan. Pt noted that she is doing better today. Pt noted she slept 8 hours last night. Pt noted her appetite is okay. Pt rated her depression a 0, on a scale of zero to ten with ten being the worst and zero being none. Pt rate her anxiety a 0, on the same scale. Pt denied any current visual or auditory hallucinations and continues to note a reduction in both. Pt denied any thoughts to harm herself or anyone else. Pt continues to improve slowly. Patient noted a significant reeducation in her psychoais, depression and anxiety during her stay at [facility]. Pt noted that she slowly improved to the point that she was comfortable and safe to D/C home. Pt noted she felt hers medications were working well and denied any current side effects. Treatment team encouraged Pt to stay out of bed and try to find activities to do, verbalized understanding. pt reported that she felt safe on the unit and comfortable for Home with her family. Pt Denied suicidal/homicidal ideations, denied any problems or concerns with medications or side effects. PT voiced progression towards treatment goals and was offered a copy of updated treatment plan completed during visit today. Denied any immediate needs or concerns. Pt denied any access to guns or weapons Pt throughout her stay on in psych pt felt like her medications were working and felt comfortable being discharged on these medications. Pt was advised to take all medications as prescribed, follow up with all scheduled appointments and abstain from any alcohol or illicit substances. Pt was in agreement. Pt felt safe and comfortable to be discharged to her home and follow up with outpt mental health provider on wednesday. Pt was very optimistic about her D/C. Pt felt safe and comfortable for D/C. Pt stated that she was doing "good," today. Pt stated that she slept "about 8 hours," last night. Pt stated that her appetite is "good." Pt stated that she rates her depression a "0," on a scale of 0-10 with 10 being the worst and 0 being none. Pt stated that she rates her anxiety an "0/10," on the same scale. Pt denies any auditory or visual hallucinations. Pt denied any thoughts to harm herself or anyone else. Pt felt safe and comfortable for D/C. The patient was educated primarily by verbal means about her diagnoses and their manifestations in her life. The option for treatment including group individual therapy programming was offered to her and the use of medications with all their potential risks, benefits, and side-effects were discussed with the pt at length. Pt was given the opportunity to ask questions and she participated in the treatment and planning process. Pt felt ready and eager to be discharged from the from the [facility] to be dishcarged home. Pt felt she was safe for this disposition. Pt was considered to be able to participate in informed consent and decision-making with respect to medical, legal and financial issues at the time of her discharge from the [facility]. AIMS=0 TD none noted 1.Interval hx 2.Continue current medications 3.Review current labs 4.Pt had an opportunity to ask questions and discuss current treatment plan. 5.Supportive therapy was provided 6.Pt encouraged to consider group or individual therapy 7.Pt was in agreement with treatment plan. 8.Pt was educated on the risks benefits and side effects of current medications. 9. Discharge Pt home with outpt mental health follow up. 10. Take all medicaitons as prescribed. 11. abstain from any alcohol or illict substances. 12. follow up with all scheduled appointments Time spent discussing smoking cessation with patient: 3 to 10 minutes Does patient wish to continue nicotine replacement upon disc: No - Time Spent with Patient Total time spent providing and/or coordinating discharge services: Greater than 30 minutes Assessment and Plan - Patient/Caregiver Discharge Instructions Activity: resume usual activities as tolerated Diet: regular diet - Follow up Plan Follow up with: [facility]Outside] - 09/27/17 1:00 pm (The above appointment is for your initial assessment. Your mental health counsellor and psychiatrist will be assigned to you at that time. Please bring insurance card and photo ID to your appointment. If you need to cancel/change your appointment , call at least 24 hours in advance.) Functional capacity at discharge: independent ambulation Overall status at discharge: patient is back to baseline Disposition: Home, Self-Care Quality - Multiple Antipsychotics Patient discharged on 2 or more antipsychotic medications: No - Justification Documentation of: Other justification (not on two antipsychotics) Procedures - Procedures Procedures: Medication Management, Crisis Stabilization, Supportive Therapy, Group Therapy, Psychoeducational Therapy
[2017-09-24] MEDS: Nicotine 21 MG PATCH.TD24 TD SCH (08:47)
[2017-09-24] MEDS: diazePAM 2 MG TABLET PO SCH (08:47)
[2017-09-24 09:19] VITALS: BP 128/94
== END 2017-09-24 17:45 | disposition home or self-care (01) | DRG 885 ==
LOC: 1ANU 19:34
PROVIDERS: ADMIT Psychiatry & Neurology Psychiatry; ATTEND Psychiatry & Neurology Forensic Psychiatry